=== PATIENT | male | born 1950 | race Caucasian/White ===

== ENCOUNTER 2017-05-01 07:09 | Day surgery (SDC) | payer MEDICARE, BC ==
[2017-05-01] MEDS ORDERED: Lactated Ringers 1,000 ML IV SCH (07:45)
[2017-05-01] MEDS ORDERED: Propofol 200 MG/20 ML SDV IV ONE (08:00)
--- NOTE | 2017-05-01 08:32 | PCM.OPNOTE ---
- General Post-Op/Procedure Note Date of Surgery/Procedure: 05/01/17 Operative Procedure(s): egd with bx Findings: gastritis erosive esophagitis Pre Op Diagnosis: dysphagia. epigastric abd pain Post-Op Diagnosis: gastritis. erosive esophagitis Anesthesia Technique: [facility] – [place] Primary Surgeon: Jared Izaguirre Anesthesia Provider: Megan Santana Pathology: stomach and esophagus Complications: None Condition: Good Free Text/Narrative:: see dictation
--- NOTE | 2017-05-01 10:17 | OR ---
DATE OF OPERATION: 05/01/2017 SURGEON: Jared Izaguirre MD PROCEDURE PERFORMED: Esophagogastroduodenoscopy with cold forceps biopsy. PREOPERATIVE DIAGNOSIS: Dysphagia and epigastric abdominal pain. POSTOPERATIVE DIAGNOSIS: Erosive esophagitis and gastritis. INDICATIONS FOR PROCEDURE: This is a 67-year-old white male who presents with the above-mentioned complaints. He was offered and accepted an EGD. DESCRIPTION OF PROCEDURE: After an excellent IV sedation was administered, digital rectal exam was performed. No marked abnormality was noted. Flexible colonoscope was advanced down the esophagus without difficulty. After placing a bite block, the stomach was insufflated, scope was passed through the pylorus to the second portion of the duodenum, and slowly withdrawn. The following findings were noted: Duodenum was unremarkable. The stomach demonstrated mild gastritis. Biopsies were taken. Distal esophagus, GE junction measured approximately 40 cm and there was evidence of some erosive esophagitis. Biopsies were taken. The remainder of the esophageal exam was unremarkable. The stomach was deflated. Scope was removed. The patient tolerated the procedure well, was taken to recovery in good condition. /[id number] /MODL
== END 2017-05-01 09:10 | disposition home or self-care (01) ==
LOC: FB.SDS 07:09
PROVIDERS: ATTEND Surgery
DX: K20.9 Esophagitis, unspecified (principal); E78.5 Hyperlipidemia, unspecified; F32.9 Major depressive disorder, single episode, unspecified; E03.9 Hypothyroidism, unspecified; Z79.82 Long term (current) use of aspirin; Z79.899 Other long term (current) drug therapy
CPT/HCPCS: 00731; 43239; 88305; 88342; J2704; J7120